=== PATIENT | female | born 1950 | race Caucasian/White ===

== ENCOUNTER 2018-11-18 12:43 | Observation (INO) ==
--- NOTE | 2018-11-16 15:20 | Progress Note ---
Subjective Date: 11/16/18 Time: 15:19 Interval history: Pt seen in Enio's office today: Pt here as a new patient for palpitations. She denies chest pain. She has been having palpitations that have been occurring for the past 3 months and occurring more at night. She feels a fluttering feel ing in her chest and sometimes she has a hard time catching her breath. She states there were several nights in a row that she felt like she wasn't going to make it through because of how she was feeling. She feels them with exertion or at rest as well. It can last several minutes or hours. SOA with palpitations at times. BP is extremely high today. Weight is stable. Denies ever having a heart attack. She used to smoke, she only smoked for 10 years and it was a long time ago. Denies ever being on anything for HLD. EKG is NSR, ST and T wave abnormality, consider inferior ischemia, rate is 64 bpm. Due to her abnormal EKG showing possible ischemia and the fluttering feeling which could be PAF would like to admit her today and keep her over night and run some tests, and put her on telemetry to monitor her heart rhythm throughout the night. Upon admission she needs CBC, BMP, Liver panel, TSH, Free T4. Lipid panel needs drawn in the AM. She needs to have Norvasc 10 mg given upon arriving to the floor on admission STAT. Then start Norvasc 10 mg daily She needs to be hooked to telemetry as well. ECHO to look at LV function while admitted. GXT Myoview to rule out ischemia due to abnormal EKG and unstable angina while admitted as well. Dr. Amezquita will accept pt for admission. RTC after hospital stay. Exam Vital signs and Labs for Last 24 Hours: Temp Pulse Resp BP Pulse Ox 97.8 F 60 18 140/65 100 11/16/18 14:38 11/16/18 14:38 11/16/18 14:38 11/16/18 14:38 11/16/18 14:38 I & O for Last 24 hours: Intake & Output 11/13/18 11/14/18 11/15/18 11/16/18 23:59 23:59 23:59 23:59 Weight 132 lb 1 oz
[2018-11-16 15:29] LABS: Basophils % 0.6 % (0.1-2.0); Eosinophils # 0.2 K/mm3 (0.0-0.4); Eosinophils % 3.3 % (0.1-12.0); Hemoglobin 12.6 g/dL (12.2-16.2); Lymphocytes # 1.1 K/mm3 (0.7-4.5); Lymphocytes % 21.6 % (10-50); Mean Corpuscular HGB Conc 33.2 g/dL (31.8-35.4); Mean Corpuscular Hemoglobin 31.4 pg (27.0-31.2); Mean Corpuscular Volume 94.5 fl (81-99); Mean Platelet Volume 7.9 fl (7.4-10.4); Monocytes # 0.3 K/mm3 (0.1-1.0); Monocytes % 5.9 % (1.7-9.3); Neutrophils # 3.5 K/mm3 (1.8-7.8); Neutrophils % 68.6 % (37.0-80.0); Platelet Count 260 K/mm3 (142-424); Red Blood Count 4.01 M/mm3 (4.20-5.40); Red Cell Distribution Width 12.3 % (11.5-17.5); White Blood Count 5.1 K/mm3 (4.8-10.8)
[2018-11-16 15:41] LABS: Albumin Level 4.6 gm/dL (3.4-5.0); Albumin/Globulin Ratio 1.4 (1.1-1.8); Anion Gap 16.9 mEq/L (5-15); Calcium 9.3 mg/dL (8.5-10.1); Globulin 3.2 gm/dl (1.3-3.2); Potassium 3.9 mmoL/L (3.5-5.1); Total Protein,Serum 7.8 gm/dL (6.4-8.2)
[2018-11-16 15:55] LABS: Free T4 (Free Thyroxine) 1.35 ng/dl (0.76-1.46); Thyroid Stimulating Hormone 1.54 uIU/ml (0.358-3.740)
--- NOTE | 2018-11-16 19:52 | Cardiology Report ---
PROCEDURE: 2-D M-mode and color Doppler study INDICATIONS FOR THE TEST: Chest pain X COPD Heart Murmur Tobacco SmokingEX PalpitationsX Fatigue Syncope Edema HypertensionXDiabetes Mellitus Rheumatic Fever SOB DOEXObesity Hyperlipidemia Family History HD Additional History ABN EKG PATIENT INFORMATION HEIGHT: 64 WEIGHT:132 GENDER: Female B/P:182/63 2-D/M-MODE INTERPRETATION: 2-D MEASUREMENTS OBSERVED VALUES IN CMS Right Ventricular Dimension (RVDd) 2.4 Interventricular Septum (Thickness)(IVsd) .8 Left Ventricular Internal Dimensions(LVIDd) 4.8 Left Ventricular Posterior Wall (Thickness)(LVPWd) .8 Aortic Root 2.9 Aortic Cusp Separation 1.5 Left Atrial Dimensions (LAD) 3.6 2D 1. Left atrium is qualitatively moderately enlarged, left ventricle is normal size, mild concentric left ventricular hypertrophy, visually estimated ejection fraction of 55% with no regional wall motion abnormality. 2. The right atrium and right ventricle are moderately enlarged with normal contractility. 3. The aortic valve is minimally thickened and fibrosed leaflet continue to display mobility. 4. The mitral and tricuspid valve leaflets are minimally thickened. 5. The pulmonic valve is poorly visualized. 6. No significant pericardial effusion noted. DOPPLER INTERROGATION: Doppler interrogation of the aortic, mitral and tricuspid valvular presence of mild aortic, mild mitral and tricuspid regurgitation, calculated right ventricular systolic pressure is 42 mmHg consistent with moderate pulmonary hypertension, diastolic parameters are inconclusive. CONCLUSION: 1. Moderate biatrial enlargement, normal left ventricular size, mild concentric left ventricular hypertrophy, visually estimated ejection fraction 55% with no regional wall motion abnormality, diastolic parameters are inconclusive. 2. Moderately enlarged right atrium and right ventricle, contractility of the right ventricle is normal. 3. Mild aortic, mild mitral and tricuspid regurgitation, calculated right ventricular systolic pressure is 42 mmHg consistent with moderate pulmonary hypertension. 4. No significant pericardial effusion noted.
--- NOTE | 2018-11-16 22:26 | History & Physical Report ---
*Admission Date: 11/16/18 *Chief complaint: chest pain *History of present illness: this wf presented to [facility] as a new patient for palpitations. She denies chest pain. She has been having palpitations that have been occurring for the past 3 months and occurring more at night. She feels a fluttering feeling in her chest and sometimes she has a hard time catching her breath. She states there were several nights in a row that she felt like she wasn't going to make it through because of how she was feeling. She feels them with exertion or at rest as well. It can last several minutes or hours. SOA with palpitations at times. BP is extremely high today. Weight is stable. Denies ever having a heart attack. She used to smoke, she only smoked for 10 years and it was a long time ago. Denies ever being on anything for HLD. EKG is NSR, ST and T wave abnormality, consider inferior ischemia, rate is 64 bpm. Due to her abnormal EKG showing possible ischemia and the fluttering feeling which could be PAF would like to admit her today and keep her over night and run some tests, and put her on telemetry to monitor her heart rhythm throughout the night. [facility] History I have reviewed the patient's past medical history: Yes Medical History: Reports:: Hypertension, Migraine, Palpitations Denies:: Cancer, Diabetes Mellitus Type 1, Diabetes Mellitus Type 2, MRSA *Have you ever received a pneumonia vaccine?: Yes *Have you received a flu vaccine this season?: Yes Other Medical History: Reports: Hypothyroidism Laterality Cases: Right: Arthroscopy Hip Other Surgeries: Yes: Hysterectomy-Total Amputation: Yes (Toes) - *Social History Educational Level: Completed High School Smoking Status: Former smoker #Yrs smoked (if former smoker): 10 Alcohol Intake: never Alcohol Intake Frequency:: 0-2 drinks per day Substance Use Type: denies use *Occupational Status:: retired, disabled Housing: house Household Members: none *Travel in the last 8 weeks: Inside the [place] - Psychiatric History Expresses thoughts of harming self/others: None Suicide Plan Description: No Plan Family Hx:: Diabetes Review of Systems - Review of Systems Review of systems:: pertinent systems reviewed and negative unless documented below - Constitutional Reports fatigue, Denies fever(s) - Eyes Denies change in vision - ENT Denies sore throat - *Cardiovascular Reports chest pain with activity, Reports shortness of breath, Reports lightheadedness - *Respiratory Denies cough - *Gastrointestinal Denies abdominal pain - *Genitourinary Denies blood in urine - *Musculoskeletal Denies joint pain - Integumentary/Breasts Denies rash - *Neurologic Denies seizure-like activity - Psychiatric Denies anxiety Meds Home Medications Medication Instructions Recorded Confirmed Type levothyroxine 75 mcg tablet 75 mcg PO DAILY 11/16/18 11/16/18 History propranolol ER 160 mg capsule,24 160 mg PO DAILY 11/16/18 11/16/18 History hr,extended release quinapril 40 mg tablet 40 mg PO BID 11/16/18 11/17/18 History rizatriptan 10 mg disintegrating 10 mg PO Q2HP PRN 11/16/18 11/17/18 History tablet Allergies Allergy/AdvReac Type Severity Reaction Status Date / Time No Known Allergies Allergy Verified 11/16/18 13:44 Exam Vital signs and Labs for Last 24 Hours: Temp Pulse Resp BP Pulse Ox 98.3 F 60 16 107/64 L 98 11/16/18 19:27 11/16/18 20:00 11/16/18 19:27 11/16/18 19:27 11/16/18 20:00 Laboratory Results - last 24 hr 11/16/18 15:20: WBC 5.1, RBC 4.01 L, Hgb 12.6, Hct 38.0, MCV 94.5, MCH 31.4 H, MCHC 33.2, RDW 12.3, Plt Count 260, MPV 7.9, Neut % (Auto) 68.6, Lymph % (Auto) 21.6, [place] % (Auto) 5.9, Eos % (Auto) 3.3, Baso % (Auto) 0.6, Neut # (Auto) 3.5, Lymph # (Auto) 1.1, [place] # (Auto) 0.3, Eos # (Auto) 0.2, Baso # (Auto) 0.0 11/16/18 15:20: Sodium 136, Potassium 3.9, Chloride 100, Carbon Dioxide 23, Anion Gap 16.9 H, BUN 16, Creatinine 0.97, Estimated Creat Clear 50, Estimated G FR 57 L, Est GFR ( Amer) 69, Glucose 97, Calcium 9.3, Total Bilirubin 1.0, AST 18, ALT 22, Alkaline Phosphatase 100, Total Protein 7.8, Albumin 4.6, Globulin 3.2, Albumin/Globulin Ratio 1.4 11/16/18 15:20: TSH 1.54, Free T4 1.35 I & O for Last 24 hours: Intake & Output 11/14/18 11/15/18 11/16/18 11/17/18 11:59 11:59 11:59 11:59 Intake Total 240 / 240 Balance 240 / 240 Weight 132 lb 1 oz - Constitutional no acute distress, thin - *Routine HEENT Exam Head: Present: normocephalic Eye: Present: EOMI, PERRL ENT: Present: mucous membranes dry - *Routine Neck Exam Present: supple. Absent: JVD - *Routine Respiratory Exam Present: CTA bilaterally - *Routine Cardiovascular Exam Present: RRR, murmur - *Routine Abdominal Exam Present: soft - *Routine Extremities Exam Absent: calf tenderness - *Routine Skin Exam Present: intact - *Routine Neurological Exam Present: alert, oriented X3, CN II-XII intact - Routine Psychiatric Exam Present: normal affect Assessment and Plan (1) HTN (hypertension) Current visit: No Status: Chronic Qualifiers: Hypertension type: essential hypertension Qualified Code(s): I10 - Essential (primary) hypertension Category: Medical Code(s): I10 - Essential (primary) hypertension (2) Dyspnea Current visit: No Status: Acute Qualifiers: Dyspnea type: dyspnea on exertion Qualified Code(s): R06.09 - Other forms of dyspnea Category: Medical Code(s): R06.00 - Dyspnea, unspecified (3) Palpitations Current visit: No Status: Acute Category: Medical Code(s): R00.2 - Palpitations
[2018-11-17 06:14] LABS: Basophils % 0.7 % (0.1-2.0); Eosinophils # 0.2 K/mm3 (0.0-0.4); Eosinophils % 4.1 % (0.1-12.0); Hematocrit 34.2 % (37.0-47.0); Hemoglobin 12.1 g/dL (12.2-16.2); Lymphocytes # 1.2 K/mm3 (0.7-4.5); Lymphocytes % 29.4 % (10-50); Mean Corpuscular HGB Conc 35.2 g/dL (31.8-35.4); Mean Corpuscular Hemoglobin 33.6 pg (27.0-31.2); Mean Corpuscular Volume 95.2 fl (81-99); Mean Platelet Volume 8.2 fl (7.4-10.4); Monocytes # 0.3 K/mm3 (0.1-1.0); Monocytes % 7.8 % (1.7-9.3); Neutrophils # 2.4 K/mm3 (1.8-7.8); Platelet Count 202 K/mm3 (142-424); Red Blood Count 3.59 M/mm3 (4.20-5.40); Red Cell Distribution Width 12.3 % (11.5-17.5); White Blood Count 4.1 K/mm3 (4.8-10.8)
[2018-11-17 06:31] LABS: Anion Gap 13.6 mEq/L (5-15); Calcium 8.7 mg/dL (8.5-10.1); Chol/HDL Ratio 2.8 (1-3.5); Potassium 3.6 mmoL/L (3.5-5.1)
--- NOTE | 2018-11-17 07:27 | Pharmacy Consult Notes ---
[facility] Pharmacy VTE Monitoring - Patient Demographics Admission date: 11/16/18 Report Date: 11/17/18 Time: 07:27 Allergies/Adverse Reactions: Patient Allergies No Known Allergies Allergy (Verified 11/16/18 13:44) Height: 1.63 m Weight: 59.903 kg - VTE Risk Labs: VTE Related Lab Results Hgb 12.1 g/dL (12.2-16.2) L 11/17/18 05:43 Hct 34.2 % (37.0-47.0) L 11/17/18 05:43 Plt Count 202 K/mm3 (142-424) 11/17/18 05:43 BUN 12 mg/dL (7-18) 11/17/18 05:43 Creatinine 0.83 mg/dL (0.55-1.02) 11/17/18 05:43 Estimated Creat Clear 50 mL/min (50-200) 11/17/18 05:43 Was VTE Risk Assessment Performed: Yes VTE Score: 3 VTE Risk Level: Low Risk - Prophylaxis VTE Prophylaxis Ordered?: Yes Types of VTE Prophylaxis: TEDS Knee High Location of Applied Device: Bilateral Lower Extremeties - VTE Diagnosis Confirmed Treatment or plan recommended: Continue Current Treatment
--- NOTE | 2018-11-17 15:09 | Progress Note ---
Addendum entered and electronically signed by PAUL Sandoval 11/17/18 15:38: Discussed with Dr. Steen With normal lexiscan myoview and continued symptomatic PVC's, will stop propranolol and start sotalol 80 mg BID (2 doses today) and then increase to 120 mg BID starting tomorrow. Monitor on telemetry for 48 hrs. Original Note: Subjective Date: 11/17/18 Time: 15:06 Principal diagnosis: palpitations Interval history: 68 yo WF in bed in NAD. Complaint of palpitations. Telemetry shows NSR with frequent PVC's. No A. fib Onel myoview is normal. Echo shows normal LVEF with mild right side enlargement with elevated RVSP at 44 mm Hg. Exam Vital signs and Labs for Last 24 Hours: Temp Pulse Resp BP Pulse Ox 97.2 F L 59 L 18 124/66 100 11/17/18 12:00 11/17/18 12:00 11/17/18 12:00 11/17/18 12:00 11/17/18 12:00 Laboratory Results - last 24 hr 11/16/18 15:20: WBC 5.1, RBC 4.01 L, Hgb 12.6, Hct 38.0, MCV 94.5, MCH 31.4 H, MCHC 33.2, RDW 12.3, Plt Count 260, MPV 7.9, Neut % (Auto) 68.6, Lymph % (Auto) 21.6, [place] % (Auto) 5.9, Eos % (Auto) 3.3, Baso % (Auto) 0.6, Neut # (Auto) 3.5, Lymph # (Auto) 1.1, [place] # (Auto) 0.3, Eos # (Auto) 0.2, Baso # (Auto) 0.0 11/16/18 15:20: Sodium 136, Potassium 3.9, Chloride 100, Carbon Dioxide 23, Anion Gap 16.9 H, BUN 16, Creatinine 0.97, Estimated Creat Clear 50, Estimated GFR 57 L, Est GFR ( Amer) 69, Glucose 97, Calcium 9.3, Total Bilirubin 1.0, AST 18, ALT 22, Alkaline Phosphatase 100, Total Protein 7.8, Albumin 4.6, Globulin 3.2, Albumin/Globulin Ratio 1.4 11/16/18 15:20: TSH 1.54, Free T4 1.35 11/17/18 05:43: WBC 4.1 L, RBC 3.59 L, Hgb 12.1 L, Hct 34.2 L, MCV 95.2, MCH 33.6 H, MCHC 35.2, RDW 12.3, Plt Count 202, MPV 8.2, Neut % (Auto) 58.0, Lymph % (Auto) 29.4, [place] % (Auto) 7.8, Eos % (Auto) 4.1, Baso % (Auto) 0.7, Neut # (Auto) 2.4, Lymph # (Auto) 1.2, [place] # (Auto) 0.3, Eos # (Auto) 0.2, Baso # (A uto) 0.0 11/17/18 05:43: Sodium 137, Potassium 3.6, Chloride 103, Carbon Dioxide 24, Anion Gap 13.6, BUN 12, Creatinine 0.83, Estimated Creat Clear 50, Estimated GFR 68, Est GFR ( Amer) 82, Glucose 90, Calcium 8.7, Triglycerides 101, Cholesterol 208 H, LDL Cholesterol 115, VLDL Cholesterol 20, HDL Cholesterol 73, Cholesterol/HDL Ratio 2.8 11/17/18 05:43: Troponin I < 0.02 I & O for Last 24 hours: Intake & Output 11/15/18 11/16/18 11/17/18 11/18/18 11:59 11:59 11:59 11:59 Intake Total 240 / 240 Balance 240 / 240 Weight 132 lb 1 oz - *Routine Respiratory Exam Present: CTA bilaterally. Absent: accessory muscle use, rales, rhonchi, wheezes - *Routine Cardiovascular Exam Present: RRR. Absent: murmur, gallop, rubs - *Routine Neurological Exam Present: alert, oriented X3, moving all extremities Progress Note: A&P (1) HTN (hypertension) Status: Chronic Current Visit: No (2) Dyspnea Status: Acute Current Visit: No (3) Palpitations Status: Acute Current Visit: No Assessment and Plan for All Diagnoses:: OK for discharge home from Cardiology standpoint. Resume home meds of Propranolol ER 160 mg daily, Quinapril 40 mg BID and new ad dition of norvasc 10 mg daily. Follow up in office in 2 wks.
--- NOTE | 2018-11-17 20:00 | Progress Note ---
Internal Medicine - PN: Subj *Date: 11/17/18 *Time: 16:00 Interval history: pt reports palpitations and pounding pulse and is scared to go home by herself Exam Vital signs and Labs for Last 24 Hours: Temp Pulse Resp BP Pulse Ox 97.1 F L 89 16 110/62 100 11/17/18 16:00 11/17/18 16:00 11/17/18 16:00 11/17/18 16:00 11/17/18 16:00 Laboratory Results - last 24 hr 11/17/18 05:43: WBC 4.1 L, RBC 3.59 L, Hgb 12.1 L, Hct 34.2 L, MCV 95.2, MCH 33.6 H, MCHC 35.2, RDW 12.3, Plt Count 202, MPV 8.2, Neut % (Auto) 58.0, Lymph % (Auto) 29.4, [place] % (Auto) 7.8, Eos % (Auto) 4.1, Baso % (Auto) 0.7, Neut # (Auto) 2.4, Lymph # (Auto) 1.2, [place] # (Auto) 0.3, Eos # (Auto) 0.2, Baso # (Auto) 0.0 11/17/18 05:43: Sodium 137, Potassium 3.6, Chloride 103, Carbon Dioxide 24, Anion Gap 13.6, BUN 12, Creatinine 0.83, Estimated Creat Clear 50, Estimated GFR 68, Est GFR ( Amer) 82, Glucose 90, Calcium 8.7, Triglycerides 101, Cholesterol 208 H, LDL Cholesterol 115, VLDL Cholesterol 20, HDL Cholesterol 73, Cholesterol/HDL Ratio 2.8 11/17/18 05:43: Troponin I < 0.02 I & O for Last 24 hours: Intake & Output 11/15/18 11/16/18 11/17/18 11/18/18 11:59 11:59 11:59 11:59 Intake Total 240 / 240 240 / 240 Balance 240 / 240 240 / 240 Weight 132 lb 1 oz - Constitutional no acute distress - *Routine HEENT Exam Head: Present: normocephalic Eye: Present: EOMI, PERRL ENT: Present: mucous membranes moist - *Routine Neck Exam Present: supple. Absent: lymphadenopathy - *Routine Respiratory Exam Present: CTA bilaterally - *Routine Cardiovascular Exam Present: RRR. Absent: murmur - *Routine Abdominal Exam Present: soft, normoactive bowel sounds. Absent: tenderness - *Routine Extremities Exam Present: pulses intact. Absent: cyanosis, clubbing, edema - *Routine Skin Exam Present: warm. Absent: rash - *Routine Neurological Exam Present: alert, oriented X3 - Routine Psychiatric Exam Present: normal affect Assessment and Plan (1) HTN (hypertension) Current visit: No Status: Chronic Qualifiers: Hypertension type: essential hypertension Qualified Code(s): I10 - Essential (primary) hypertension Category: Medical Code(s): I10 - Essential (primary) hypertension (2) Dyspnea Current visit: No Status: Acute Qualifiers: Dyspnea type: dyspnea on exertion Qualified Code(s): R06.09 - Other forms of dyspnea Category: Medical Code(s): R06.00 - Dyspnea, unspecified (3) Palpitations Current visit: No Status: Acute Category: Medical Code(s): R00.2 - Palpitations - Assessment and plan all Dx Assessment and Plan for all problems:: rounded with evaristo all orders per evaristo
--- NOTE | 2018-11-18 09:11 | Progress Note ---
Internal Medicine - PN: Subj *Date: 11/18/18 *Time: 09:50 Interval history: Pt states new med helped with palpitations and she is not feeling a racing hr at this time Exam Vital signs and Labs for Last 24 Hours: Temp Pulse Resp BP Pulse Ox 98.1 F 71 15 121/68 99 11/18/18 08:00 11/18/18 08:00 11/18/18 08:00 11/18/18 08:00 11/18/18 08:00 I & O for Last 24 hours: Intake & Output 11/15/18 11/16/18 11/17/18 11/18/18 11:59 11:59 11:59 11:59 Intake Total 240 / 240 480 / 480 Balance 240 / 240 480 / 480 Weight 132 lb 1 oz - Constitutional no acute distress - *Routine HEENT Exam Head: Present: normocephalic Eye: Present: EOMI, PERRL ENT: Present: mucous membranes moist - *Routine Neck Exam Present: supple. Absent: lymphadenopathy - *Routine Respiratory Exam Present: CTA bilaterally - *Routine Cardiovascular Exam Present: RRR - *Routine Abdominal Exam Present: soft, normoactive bowel sounds. Absent: tenderness - *Routine Extremities Exam Absent: cyanosis, clubbing, edema - *Routine Skin Exam Present: warm. Absent: rash - *Routine Neurological Exam Present: alert, oriented X3 Assessment and Plan (1) HTN (hypertension) Current visit: No Status: Chronic Qualifiers: Hypertension type: essential hypertension Qualified Code(s): I10 - Essential (primary) hypertension Category: Medical Code(s): I10 - Essential (primary) hypertension (2) Dyspnea Current visit: No Status: Acute Qualifiers: Dyspnea type: dyspnea on exertion Qualified Code(s): R06.09 - Other forms of dyspnea Category: Medical Code(s): R06.00 - Dyspnea, unspecified (3) Palpitations Current visit: No Status: Acute Category: Medical Code(s): R00.2 - Palpitations - Assessment and plan all Dx Assessment and Plan for all problems:: discussed with evaristo, he will round later today, all orders per evaristo per cardiology will increase med and continue to monitor poss dc in am
--- NOTE | 2018-11-18 10:00 | Progress Note ---
Subjective Date: 11/18/18 Time: 09:58 Principal diagnosis: palpitations Interval history: 68-year-old white female in bed in no acute distress. She states she slept well after starting the sotalol which dramatically reduced her PVCs and palpitations. Telemetry shows sinus rhythm with improvement in PVCs. EKG this morning shows sinus rhythm with QT interval of 408 ms. Exam Vital signs and Labs for Last 24 Hours: Temp Pulse Resp BP Pulse Ox 98.1 F 71 15 121/68 99 11/18/18 08:00 11/18/18 08:00 11/18/18 08:00 11/18/18 08:00 11/18/18 08:00 I & O for Last 24 hours: Intake & Output 11/15/18 11/16/18 11/17/18 11/18/18 11:59 11:59 11:59 11:59 Intake Total 240 / 240 480 / 480 Balance 240 / 240 480 / 480 Weight 132 lb 1 oz - *Routine HEENT Exam Head: Present: normocephalic Eye: Present: EOMI, PERRL ENT: Present: mucous membranes moist - *Routine Respiratory Exam Present: CTA bilaterally. Absent: accessory muscle use, rales, rhonchi, wheezes - *Routine Cardiovascular Exam Present: RRR. Absent: murmur, gallop, rubs - *Routine Extremities Exam Absent: edema, calf tenderness - *Routine Neurological Exam Present: alert, oriented X3, moving all extremities Progress Note: A&P (1) HTN (hypertension) Status: Chronic Current Visit: No (2) Dyspnea Status: Acute Current Visit: No (3) Palpitations Status: Acute Current Visit: No Assessment and Plan for All Diagnoses:: 1. Continue sotalol but will increase to 120 mg twice daily today. Continue to monitor in the hospital tonight and anticipate discharge home tomorrow. 2. Encourage the patient to ambulate in the [place] today to monitor her heart with activity.
[2018-11-19 07:15] LABS: Basophils % 0.6 % (0.1-2.0); Eosinophils # 0.2 K/mm3 (0.0-0.4); Eosinophils % 3.4 % (0.1-12.0); Hematocrit 37.5 % (37.0-47.0); Hemoglobin 12.1 g/dL (12.2-16.2); Lymphocytes # 1.1 K/mm3 (0.7-4.5); Lymphocytes % 19.9 % (10-50); Mean Corpuscular HGB Conc 32.2 g/dL (31.8-35.4); Mean Corpuscular Hemoglobin 31.1 pg (27.0-31.2); Mean Corpuscular Volume 96.6 fl (81-99); Mean Platelet Volume 8.6 fl (7.4-10.4); Monocytes # 0.4 K/mm3 (0.1-1.0); Monocytes % 7.5 % (1.7-9.3); Neutrophils # 3.7 K/mm3 (1.8-7.8); Neutrophils % 68.7 % (37.0-80.0); Platelet Count 217 K/mm3 (142-424); Red Blood Count 3.88 M/mm3 (4.20-5.40); Red Cell Distribution Width 12.3 % (11.5-17.5); White Blood Count 5.4 K/mm3 (4.8-10.8)
[2018-11-19 07:52] LABS: Calcium 8.7 mg/dL (8.5-10.1)
--- NOTE | 2018-11-19 08:34 | Progress Note ---
Subjective Date: 11/19/18 Time: 08:33 Principal diagnosis: palpitations Interval history: 68-year-old white female in bed in no acute distress. Patient states she is not noticed as many palpitations and feels better on the sotalol therapy. Telemetry shows sinus rhythm with rare PVC. EKG is sinus and unremarkable with acceptable QT interval. Exam Vital signs and Labs for Last 24 Hours: Temp Pulse Resp BP Pulse Ox 97.9 F 69 18 116/68 99 11/19/18 08:00 11/19/18 08:00 11/19/18 08:00 11/19/18 08:00 11/19/18 08:00 Laboratory Results - last 24 hr 11/19/18 06:05: WBC 5.4 D, RBC 3.88 L, Hgb 12.1 L, Hct 37.5, MCV 96.6, MCH 31.1, MCHC 32.2, RDW 12.3, Plt Count 217, MPV 8.6, Neut % (Auto) 68.7, Lymph % (Auto) 19.9, [place] % (Auto) 7.5, Eos % (Auto) 3.4, Baso % (Auto) 0.6, Neut # (Auto) 3.7, Lymph # (Auto) 1.1, [place] # (Auto) 0.4, Eos # (Auto) 0.2, Baso # (Auto) 0.0 11/19/18 06:05: Sodium 134 L, Potassium 4.0, Chloride 99, Carbon Dioxide 24, Anion Gap 15.0, BUN 21 H D, Creatinine 0.77, Estimated Creat Clear 50, Estimated GFR 74, Est GFR ( Amer) 90, Glucose 85, Calcium 8.7 I & O for Last 24 hours: Intake & Output 11/16/18 11/17/18 11/18/18 11/19/18 11:59 11:59 11:59 11:59 Intake Total 240 / 240 480 / 480 1080 / 1080 Balance 240 / 240 480 / 480 1080 / 1080 Weight 132 lb 1 oz - *Routine HEENT Exam Head: Present: normocephalic Eye: Present: EOMI, PERRL ENT: Present: mucous membranes moist - *Routine Respiratory Exam Present: CTA bilaterally. Absent: accessory muscle use, rales, rhonchi, wheezes - *Routine Cardiovascular Exam Present: RRR. Absent: murmur, gallop, rubs - *Routine Neurological Exam Present: alert, oriented X3, moving all extremities Progress Note: A&P (1) HTN (hypertension) Status: Chronic Current Visit: No (2) Dyspnea Status: Acute Current Visit: No (3) Palpitations Status: Acute Current Visit: No Assessment and Plan for All Diagnoses:: Okay for discharge home from cardiology standpoint. Discontinue propranolol Meds: Sotalol 120 mg twice daily Quinapril 40 mg twice daily Amlodipine 10 mg daily Follow-up in our office in 1 week
--- NOTE | 2018-11-19 08:52 | Discharge Summary ---
General - General Admission date:: 11/16/18 Discharge date: 11/19/18 HPI HPI: this wf presented to [facility] as a new patient for palpitations. She denies chest pain. She has been having palpitations that have been occurring for the past 3 months and occurring more at night. She feels a fluttering feeling in her chest and sometimes she has a hard time catching her breath. She states there were several nights in a row that she felt like she wasn't going to make it through because of how she was feeling. She feels them with exertion or at rest as well. It can last several minutes or hours. SOA with palpitations at times. BP is extremely high today. Weight is stable. Denies ever having a heart attack. She used to smoke, she only smoked for 10 years and it was a long time ago. Denies ever being on anything for HLD. EKG is NSR, ST and T wave abnormality, consider inferior ischemia, rate is 64 bpm. Due to her abnormal EKG showing possible ischemia and the fluttering feeling which could be PAF would like to admit her today and keep her over night and run some tests, and put her on telemetry to monitor her heart rhythm throughout the night. Hospital Course Hospital Course: stress test:IMPRESSION: No scintigraphic evidence of Lexiscan-induced myocardial ischemia with normal ejection fraction and normal wall motion echo:DOPPLER INTERROGATION: Doppler interrogation of the aortic, mitral and tricuspid valvular presence of mild aortic, mild mitral and tricuspid regurgitation, calculated right ventricular systolic pressure is 42 mmHg consistent with moderate pulmonary hypertension, diastolic parameters are inconclusive. CONCLUSION: 1. Moderate biatrial enlargement, normal left ventricular size, mild concentric left ventricular hypertrophy, visually estimated ejection fraction 55% with no regional wall motion abnormality, diastolic parameters are inconclusive. 2. Moderately enlarged right atrium and right ventricle, contractility of the right ventricle is normal. 3. Mild aortic, mild mitral and tricuspid regurgitation, calculated right ventricular systolic pressure is 42 mmHg consistent with moderate pulmonary hypertension. 4. No significant pericardial effusion noted. chest x ray:IMPRESSION: Cardiomegaly, no acute finding pt states new meds have taken away her palpitations and she is ready to go home.Pt has appointment with pcp on 11/27/18 Objective Vital signs: Temp Pulse Resp BP Pulse Ox 97.9 F 69 18 116/68 99 11/19/18 08:00 02/28/19 08:00 11/19/18 08:00 11/19/18 08:00 11/19/18 08:00 no acute distress - *Routine HEENT Exam Head: Present: normocephalic Eye: Present: PERRL ENT: Present: mucous membranes moist - *Routine Neck Exam Present: full ROM - *Routine Respiratory Exam Present: CTA bilaterally - *Routine Cardiovascular Exam Present: RRR - *Routine Abdominal Exam Present: soft, normoactive bowel sounds - *Routine Extremities Exam Present: full ROM - *Routine Neurological Exam Present: alert, oriented X3 - Routine Psychiatric Exam Present: normal affect Results Labs on day of discharge: Labs from last 24 hours 11/19/18 11/19/18 06:05 06:05 WBC 5.4 D RBC 3.88 L Hgb 12.1 L Hct 37.5 MCV 96.6 MCH 31.1 MCHC 32.2 RDW 12.3 Plt Count 217 MPV 8.6 Neut % (Auto) 68.7 Lymph % (Auto) 19.9 [place] % (Auto) 7.5 Eos % (Auto) 3.4 Baso % (Auto) 0.6 Neut # (Auto) 3.7 Lymph # (Auto) 1.1 [place] # (Auto) 0.4 Eos # (Auto) 0.2 Baso # (Auto) 0.0 Sodium 134 L Potassium 4.0 Chloride 99 Carbon Dioxide 24 Anion Gap 15.0 BUN 21 H D Creatinine 0.77 Estimated Creat Clear 50 Estimated GFR 74 Est GFR ( Amer) 90 Glucose 85 Calcium 8.7 - Additional Comments rounded with evaristo, all orders per evaristo DS: Diagnosis - Discharge Diagnosis (1) HTN (hypertension) Status: Chronic (2) Dyspnea Status: Acute (3) Palpitations Status: Acute Discharge Plan - Patient Discharge Instructions ACTIVITY: Continue current activity DIET: continue same diet Patient Instructions: DI for Angina, Amlodipine - Follow up Plan Follow up with: Lorenzo Steen MD [Staff Physician] - 1 week Disposition: Home, Self-Long-Term Medications: Home Medications Medication Instructions Recorded Confirmed Type levothyroxine 75 mcg tablet 75 mcg PO DAILY 11/16/18 11/16/18 History propranolol ER 160 mg capsule,24 160 mg PO DAILY 11/16/18 11/16/18 History hr,extended release rizatriptan 10 mg disintegrating 10 mg PO Q2HP PRN 11/16/18 11/17/18 History tablet Amlodipine Besylate [Norvasc 10mg 10 mg PO DAILY 30 Days #30 tab 11/19/18 Rx tablet] Quinapril HCl 40 mg PO BID 30 Days #60 tab 11/19/18 Rx Sotalol HCl [Betapace 80mg Tablet] 120 mg PO BID 30 Days #60 tab 11/19/18 Rx Prescriptions/Medication Reconciliation: New Acetaminophen [Acetaminophen 325mg tab] 650 mg PO Q4HP PRN tablet PRN Reason: Mild Pain Nicotine [Nicoderm 21mg/24hr patch] 21 mg TD DAILYP PRN patch.td24 PRN Reason: Nicotine Cravings Amlodipine Besylate [Norvasc 10mg tablet] 10 mg PO DAILY 30 Days #30 tab Sotalol HCl [Betapace 80mg Tablet] 120 mg PO BID 30 Days #60 tab Continue levothyroxine 75 mcg tablet 75 mcg PO DAILY rizatriptan 10 mg disintegrating tablet 10 mg PO Q2HP PRN PRN Reason: Migraine Headache Changed Quinapril HCl 40 mg PO BID 30 Days #60 tab Discontinued propranolol ER 160 mg capsule,24 hr,extended release 160 mg PO DAILY
== END 2018-11-19 11:22 | disposition home or self-care (01) ==
LOC: 2ND
PROVIDERS: ADMIT Emergency Medicine; ATTEND Emergency Medicine
CPT/HCPCS: 36415; 71020; 71046; 78452; 80048; 80053; 80061; 84439; 84443; 84484; 85025; 93005; 93017; 93306; A9502; G0378; J2785

== ENCOUNTER → 2021-02-27 14:32 | Outpatient (CLI) | payer MEDICARE, BC, SELFPAY | PROVIDERS: PCP Family Medicine; Visit Provider Physician Assistant | DX: I10 Essential (primary) hypertension (principal); I27.20 Pulmonary hypertension, unspecified; R00.2 Palpitations; R94.31 Abnormal electrocardiogram [ECG] [EKG] | CPT/HCPCS: 93270; 93306 ==